=== PATIENT | male | born 1995 | race Caucasian/White ===

== ENCOUNTER 2017-10-16 14:03 | Inpatient (IN) | payer MEDICAID ==
[~2017-10-16] VITALS: Ht 170.2 cm; Wt 79.5 kg
[2017-10-16 14:27] LABS: BASOPHILS % (AUTO) 0.3 % (0-1); EOSINOPHILS # (AUTO) 0.7 X10'3 (0-0.9); EOSINOPHILS % (AUTO) 4.6 % (0-6); HEMOGLOBIN 8.9 g/dl (14.0-17.9); LYMPHOCYTES # (AUTO) 1.7 X10'3 (1.1-4.8); LYMPHOCYTES % (AUTO) 10.8 % (21-51); MEAN CORPUSCULAR HEMOGLOBIN 28.6 PG (27.0-31.0); MEAN CORPUSCULAR HGB CONC 32.8 % (33.0-36.5); MEAN PLATELET VOLUME 7.5 FL (7.4-10.4); MONOCYTES # (AUTO) 0.9 X10'3 (0-0.9); MONOCYTES % (AUTO) 5.7 % (2-12); NEUTROPHILS # (AUTO) 12.5 X10'3 (1.8-7.7); NEUTROPHILS % (AUTO) 78.6 % (42-75); PLATELET COUNT 330 X10'3 (140-440); RED CELL DISTRIBUTION WIDTH 18.6 % (11.5-14.5); WHITE BLOOD COUNT 15.9 X10'3 (4.5-11.0)
[2017-10-16 14:56] LABS: ALANINE AMINOTRANSFERASE 10 U/L (12-78); ALBUMIN 2.2 G/DL (3.4-5.0); ALBUMIN/GLOBULIN RATIO 0.6 (1.1-1.5); ALKALINE PHOSPHATASE 75 IU/L (46-116); ANION GAP 17 (8-16); ASPARTATE AMINO TRANSFERASE 21 U/L (10-37); BILIRUBIN,TOTAL 0.4 MG/DL (0.1-1.0); BLOOD UREA NITROGEN 59 MG/DL (7-18); BUN/CREATININE RATIO 4.8 (5.4-32.0); CALCIUM 8.3 MG/DL (8.5-10.1); CHLORIDE 105 MMOL/L (99-107); GLUCOSE 100 MG/DL (70-104); MAGNESIUM 2.2 MG/DL (1.5-2.4); PHOSPHORUS 7.6 MG/DL (2.3-4.5); POTASSIUM 4.1 MMOL/L (3.5-5.1); SODIUM 146 MMOL/L (135-145); TOTAL CARBON DIOXIDE 23.8 MMOL/L (24-32); TOTAL PROTEIN 6.2 G/DL (6.4-8.2); eGFR 5 ML/MIN
[2017-10-16 15:47] LABS: ANISOCYTOSIS 2+; MICROCYTOSIS FEW
[2017-10-16 15:48] LABS: ELLIPTOCYTES FEW; POLYCHROMASIA 1+
[2017-10-16] MEDS ORDERED: normal saline 1000ml 250 ML IV PRN (16:12)
[2017-10-16] MEDS ORDERED: heparin 1,000unit/ml 10ml vial 10 ML IV ONE (16:12)
[2017-10-16] MEDS ORDERED: epoetin 20,000 units/ml inj IV ONE (16:15)
[2017-10-16] MEDS ORDERED: heparin 1,000 units/ml 10ml inj HE ONE ×2 (16:20)
[2017-10-16] MEDS ORDERED: acetaminophen 325mg tablet PO PRN (16:25)
[2017-10-16] MEDS ORDERED: HYDROcodone/acetaminophen 10/325mg tab PO PRN (16:25)
[2017-10-16] MEDS ORDERED: ondansetron/PF 4mg/2ml inj IV PRN (16:25)
[2017-10-16] MEDS ORDERED: vancomycin/NS 1 GM ADD-VANTAGE 250 ML IV ONE (16:30)
[2017-10-16] MEDS ORDERED: ceftazidime 1000mg in D5W 50ml 50 ML IV SCH (16:30)
[2017-10-16 16:45] LABS: PLATELET ESTIMATE NORMAL
[2017-10-16 19:00] VITALS: BP 145/97
[2017-10-16 19:30] VITALS: BP 148/112
[2017-10-16 19:45] VITALS: BP 160/97
[2017-10-16] MEDS ORDERED: LORazepam 2 mg/ml vial IV ONE (19:45)
[2017-10-16 20:00] VITALS: BP 152/108
[2017-10-16] MEDS ORDERED: heparin, porcine 5000 units/ml vial SQ SCH (20:00)
[2017-10-16 20:15] VITALS: BP 158/110
[2017-10-16] MEDS: metoprolol tartrate 50mg tablet PO SCH (20:42)
[2017-10-16] MEDS: docusate sod 100mg capsule PO SCH (20:43)
[2017-10-16 22:56] VITALS: BP 147/94
[2017-10-17] VITALS (7 sets, daily range): BP systolic 108–146; BP diastolic 68–94
[2017-10-17] MEDS: guaiFENesin/DM oral syrup 5 ML CUP PO PRN ×2 (00:49→19:25)
[2017-10-17] MEDS: benzonatate 100mg capsule PO PRN ×2 (00:53→19:25)
[2017-10-17 03:43] LABS: BASOPHILS # (AUTO) 0.2 X10'3 (0-0.2); BASOPHILS % (AUTO) 0.7 % (0-1); EOSINOPHILS # (AUTO) 0.9 X10'3 (0-0.9); EOSINOPHILS % (AUTO) 3.5 % (0-6); HEMATOCRIT 32.2 % (42.0-52.0); HEMOGLOBIN 10.7 g/dl (14.0-17.9); LYMPHOCYTES # (AUTO) 2.6 X10'3 (1.1-4.8); LYMPHOCYTES % (AUTO) 10.6 % (21-51); MEAN CORPUSCULAR HEMOGLOBIN 28.9 PG (27.0-31.0); MEAN CORPUSCULAR HGB CONC 33.3 % (33.0-36.5); MEAN CORPUSCULAR VOLUME 86.6 FL (78-98); MEAN PLATELET VOLUME 8.3 FL (7.4-10.4); MONOCYTES # (AUTO) 1.4 X10'3 (0-0.9); MONOCYTES % (AUTO) 5.8 % (2-12); NEUTROPHILS # (AUTO) 19.4 X10'3 (1.8-7.7); NEUTROPHILS % (AUTO) 79.4 % (42-75); PLATELET COUNT 458 X10'3 (140-440); RED BLOOD COUNT 3.72 X10'6 (4.70-6.10); RED CELL DISTRIBUTION WIDTH 18.6 % (11.5-14.5); WHITE BLOOD COUNT 24.5 X10'3 (4.5-11.0)
[2017-10-17 03:56] LABS: ALANINE AMINOTRANSFERASE 17 U/L (12-78); ALBUMIN 2.6 G/DL (3.4-5.0); ALBUMIN/GLOBULIN RATIO 0.6 (1.1-1.5); ALKALINE PHOSPHATASE 89 IU/L (46-116); ANION GAP 11 (8-16); ASPARTATE AMINO TRANSFERASE 31 U/L (10-37); BILIRUBIN,TOTAL 0.7 MG/DL (0.1-1.0); BLOOD UREA NITROGEN 23 MG/DL (7-18); BUN/CREATININE RATIO 3.9 (5.4-32.0); CALCIUM 8.8 MG/DL (8.5-10.1); CHLORIDE 101 MMOL/L (99-107); GLUCOSE 128 MG/DL (70-104); MAGNESIUM 2.1 MG/DL (1.5-2.4); PHOSPHORUS 4.1 MG/DL (2.3-4.5); POTASSIUM 4.7 MMOL/L (3.5-5.1); SODIUM 140 MMOL/L (135-145); TOTAL PROTEIN 7.3 G/DL (6.4-8.2); eGFR 12 ML/MIN
[2017-10-17] MEDS ORDERED: AMLO10TA4 PO (07:47)
[2017-10-17] MEDS ORDERED: SIRO1TAB6 PO (07:51)
[2017-10-17] MEDS ORDERED: CALC0.258 PO (07:51)
[2017-10-17] MEDS ORDERED: TACR1CAP PO (07:51)
[2017-10-17] MEDS ORDERED: PRAV20TA4 PO (07:51)
[2017-10-17] MEDS ORDERED: SODI650T29 PO ×2 (07:52)
[2017-10-17] MEDS ORDERED: FERR-119 (07:53)
[2017-10-17] MEDS ORDERED: LABE100T PO (07:54)
[2017-10-17] MEDS: docusate sod 100mg capsule PO SCH ×2 (08:00→19:25)
[2017-10-17] MEDS: metoprolol tartrate 50mg tablet PO SCH ×2 (08:40→19:25)
[2017-10-17 13:20] LABS: CLARITY,URINE TURBID (Clear); COLOR,URINE RED (Yellow)
[2017-10-17 13:23] LABS: UA COLLECTION TYPE NON-SPECIFIED
[2017-10-17 13:29] LABS: WBC,URINE 50-100 /HPF (0-4)
[2017-10-17 13:30] LABS: BACTERIA,URINE 2+ /HPF (Neg); RBC,URINE TNTC /HPF (0-2); SQUAMOUS EPITHELIAL CELL,UR NONE SEEN /LPF (FEW)
[2017-10-17 13:31] LABS: WBC CLUMPS,URINE MODERATE /HPF (NEGATIVE)
[2017-10-17] MEDS ORDERED: MINO2.5T19 PO (15:15)
[2017-10-17] MEDS ORDERED: CLON0.2T PO (15:15)
[2017-10-17] MEDS ORDERED: FERR325T28 PO (15:15)
[2017-10-17] MEDS ORDERED: CALC667C5 PO (15:15)
[2017-10-17] MEDS ORDERED: DILT180C53 PO (15:15)
[2017-10-17] MEDS ORDERED: FURO40TA4 PO (15:15)
[2017-10-17] MEDS ORDERED: CHOL2000 PO (15:15)
[2017-10-17] MEDS: calcitriol 0.25mcg capsule PO SCH (16:49)
[2017-10-17] MEDS ORDERED: labetalol 100mg tablet PO SCH (20:00)
[2017-10-17] MEDS ORDERED: minoxidil 2.5mg tablet PO SCH (20:00)
[2017-10-17] MEDS: tacrolimus anhydrous 1mg capsule PO SCH (20:27)
[2017-10-17] MEDS: ferrous sulfate 325mg tablet PO SCH (20:27)
[2017-10-17] MEDS: atorvastatin 10mg tablet PO SCH (20:27)
[2017-10-17] MEDS: sodium bicarbonate 650mg tablet PO SCH (20:28)
[2017-10-18] MEDS: ceftazidime 1000mg in D5W 50ml 50 ML IV SCH (00:30)
[2017-10-18 05:09] LABS: BASOPHILS # (AUTO) 0.1 X10'3 (0-0.2); BASOPHILS % (AUTO) 0.7 % (0-1); EOSINOPHILS # (AUTO) 0.6 X10'3 (0-0.9); EOSINOPHILS % (AUTO) 5.4 % (0-6); HEMATOCRIT 26.8 % (42.0-52.0); HEMOGLOBIN 8.9 g/dl (14.0-17.9); LYMPHOCYTES # (AUTO) 1.5 X10'3 (1.1-4.8); LYMPHOCYTES % (AUTO) 13.2 % (21-51); MEAN CORPUSCULAR HEMOGLOBIN 28.8 PG (27.0-31.0); MEAN CORPUSCULAR HGB CONC 33.3 % (33.0-36.5); MEAN CORPUSCULAR VOLUME 86.7 FL (78-98); MEAN PLATELET VOLUME 7.8 FL (7.4-10.4); MONOCYTES # (AUTO) 0.9 X10'3 (0-0.9); MONOCYTES % (AUTO) 7.7 % (2-12); NEUTROPHILS # (AUTO) 8.4 X10'3 (1.8-7.7); PLATELET COUNT 325 X10'3 (140-440); RED BLOOD COUNT 3.09 X10'6 (4.70-6.10); RED CELL DISTRIBUTION WIDTH 17.7 % (11.5-14.5); WHITE BLOOD COUNT 11.5 X10'3 (4.5-11.0)
[2017-10-18 05:20] VITALS: BP 110/71
[2017-10-18 05:47] LABS: ALANINE AMINOTRANSFERASE 15 U/L (12-78); ALBUMIN 2.1 G/DL (3.4-5.0); ALBUMIN/GLOBULIN RATIO 0.5 (1.1-1.5); ALKALINE PHOSPHATASE 69 IU/L (46-116); ANION GAP 12 (8-16); ASPARTATE AMINO TRANSFERASE 22 U/L (10-37); BILIRUBIN,TOTAL 0.4 MG/DL (0.1-1.0); BLOOD UREA NITROGEN 46 MG/DL (7-18); BUN/CREATININE RATIO 5.1 (5.4-32.0); CALCIUM 8.2 MG/DL (8.5-10.1); CHLORIDE 99 MMOL/L (99-107); GLUCOSE 112 MG/DL (70-104); MAGNESIUM 1.9 MG/DL (1.5-2.4); PHOSPHORUS 7.4 MG/DL (2.3-4.5); POTASSIUM 4.5 MMOL/L (3.5-5.1); SODIUM 139 MMOL/L (135-145); TOTAL CARBON DIOXIDE 28.1 MMOL/L (24-32); eGFR 7 ML/MIN
[2017-10-18 06:30] VITALS: BP 102/60
[2017-10-18] MEDS ORDERED: heparin 1,000 units/ml 10ml inj HE ONE ×2 (08:00)
[2017-10-18] MEDS ORDERED: epoetin 20,000 units/ml inj IV ONE (08:00)
[2017-10-18] MEDS: sodium bicarbonate 650mg tablet PO SCH ×2 (08:00→21:00)
[2017-10-18] MEDS ORDERED: heparin 1,000unit/ml 10ml vial 10 ML IV ONE (08:00)
[2017-10-18] MEDS: metoprolol tartrate 50mg tablet PO SCH ×2 (08:00→19:35)
[2017-10-18] MEDS ORDERED: normal saline 1000ml 250 ML IV PRN (08:00)
[2017-10-18] MEDS: vitamin D (cholecalciferol) 1,000 unit tablet PO SCH (08:00)
[2017-10-18] MEDS: calcium acetate 667mg (PhosLO) capsule PO SCH ×3 (08:07→17:33)
[2017-10-18] MEDS: calcitriol 0.25mcg capsule PO SCH (08:09)
[2017-10-18] MEDS: ferrous sulfate 325mg tablet PO SCH ×2 (08:09→19:35)
[2017-10-18] MEDS: docusate sod 100mg capsule PO SCH ×2 (08:09→20:00)
[2017-10-18] MEDS: tacrolimus anhydrous 1mg capsule PO SCH ×2 (08:10→19:35)
[2017-10-18 11:00] VITALS: BP 123/78
[2017-10-18 15:00] VITALS: BP 112/66
[2017-10-18 19:00] VITALS: BP 120/69
[2017-10-18] MEDS: atorvastatin 10mg tablet PO SCH (19:35)
[2017-10-18 23:00] VITALS: BP 106/57
[2017-10-19] MEDS: ceftazidime 1000mg in D5W 50ml 50 ML IV SCH
[2017-10-19 03:00] VITALS: BP 133/70
[2017-10-19 05:30] VITALS: BP 133/84
[2017-10-19 06:20] LABS: BASOPHILS % (AUTO) 0.7 % (0-1); EOSINOPHILS # (AUTO) 0.4 X10'3 (0-0.9); EOSINOPHILS % (AUTO) 5.4 % (0-6); HEMATOCRIT 25.7 % (42.0-52.0); HEMOGLOBIN 8.6 g/dl (14.0-17.9); LYMPHOCYTES # (AUTO) 1.6 X10'3 (1.1-4.8); LYMPHOCYTES % (AUTO) 21.8 % (21-51); MEAN CORPUSCULAR HEMOGLOBIN 28.7 PG (27.0-31.0); MEAN CORPUSCULAR HGB CONC 33.5 % (33.0-36.5); MEAN CORPUSCULAR VOLUME 85.8 FL (78-98); MEAN PLATELET VOLUME 7.9 FL (7.4-10.4); MONOCYTES # (AUTO) 0.9 X10'3 (0-0.9); MONOCYTES % (AUTO) 11.9 % (2-12); NEUTROPHILS # (AUTO) 4.4 X10'3 (1.8-7.7); NEUTROPHILS % (AUTO) 60.2 % (42-75); PLATELET COUNT 272 X10'3 (140-440); RED BLOOD COUNT 2.99 X10'6 (4.70-6.10); RED CELL DISTRIBUTION WIDTH 17.8 % (11.5-14.5); WHITE BLOOD COUNT 7.4 X10'3 (4.5-11.0)
[2017-10-19 06:44] LABS: ALANINE AMINOTRANSFERASE 16 U/L (12-78); ALBUMIN 1.9 G/DL (3.4-5.0); ALBUMIN/GLOBULIN RATIO 0.5 (1.1-1.5); ALKALINE PHOSPHATASE 64 IU/L (46-116); ANION GAP 11 (8-16); ASPARTATE AMINO TRANSFERASE 24 U/L (10-37); BILIRUBIN,TOTAL 0.3 MG/DL (0.1-1.0); BLOOD UREA NITROGEN 28 MG/DL (7-18); BUN/CREATININE RATIO 4.9 (5.4-32.0); CALCIUM 8.4 MG/DL (8.5-10.1); CHLORIDE 102 MMOL/L (99-107); CREATININE 5.66 MG/DL (0.60-1.10); GLUCOSE 112 MG/DL (70-104); MAGNESIUM 1.9 MG/DL (1.5-2.4); PHOSPHORUS 5.6 MG/DL (2.3-4.5); POTASSIUM 4.2 MMOL/L (3.5-5.1); SODIUM 143 MMOL/L (135-145); TOTAL CARBON DIOXIDE 29.9 MMOL/L (24-32); TOTAL PROTEIN 5.7 G/DL (6.4-8.2); eGFR 13 ML/MIN
[2017-10-19] MEDS: ferrous sulfate 325mg tablet PO SCH (07:58)
[2017-10-19] MEDS: tacrolimus anhydrous 1mg capsule PO SCH (07:59)
[2017-10-19] MEDS: sodium bicarbonate 650mg tablet PO SCH (07:59)
[2017-10-19] MEDS: metoprolol tartrate 50mg tablet PO SCH (08:00)
[2017-10-19] MEDS: docusate sod 100mg capsule PO SCH (08:00)
[2017-10-19] MEDS: vitamin D (cholecalciferol) 1,000 unit tablet PO SCH (08:01)
[2017-10-19] MEDS: calcium acetate 667mg (PhosLO) capsule PO SCH ×2 (08:01→12:37)
[2017-10-19] MEDS: calcitriol 0.25mcg capsule PO SCH (08:01)
[2017-10-19 11:00] VITALS: BP 124/65
[2017-10-19 15:00] VITALS: BP 126/82
[2017-10-19] MEDS ORDERED: METO50TA16 PO (15:06)
[2017-10-19] MEDS ORDERED: FURO40TA4 PO (15:06)
[2017-10-19] MEDS ORDERED: lactobacillus rhamnosus 10,000 MMU CELLS/CAPSULE PO SCH (17:30)
== END 2017-10-19 17:05 | disposition home or self-care (01) | DRG 133 ==
LOC: ER 14:04 → ED HOLD 16:21 → PCU 3S 19:00 → CMPBEDREQ 19:34
PROVIDERS: ADMIT Internal Medicine Critical Care Medicine; ATTEND Internal Medicine Critical Care Medicine
PROC: 5A09357 Assistance with Respiratory Ventilation, Less than 24 Consecutive Hours, Continuous Positive Airway Pressure (ICD-10-PCS; 2017-10-16)
PROC: 5A1D70Z Performance of Urinary Filtration, Intermittent, Less than 6 Hours Per Day (ICD-10-PCS; 2017-10-16)
PROC: 5A1D70Z Performance of Urinary Filtration, Intermittent, Less than 6 Hours Per Day (ICD-10-PCS; principal; 2017-10-18)
DX: J96.01 Acute respiratory failure with hypoxia (principal); J18.9 Pneumonia, unspecified organism; T86.12 Kidney transplant failure; N18.6 End stage renal disease; G71.0 Muscular dystrophy; I12.0 Hypertensive chronic kidney disease with stage 5 chronic kidney disease or end stage renal disease; J81.1 Chronic pulmonary edema; Y83.0 Surgical operation with transplant of whole organ as the cause of abnormal reaction of the patient, or of later complication, without mention of misadventure at the time of the procedure; N13.729 Vesicoureteral-reflux with reflux nephropathy without hydroureter, unspecified; R31.0 Gross hematuria; Z79.899 Other long term (current) drug therapy; Z88.0 Allergy status to penicillin; Z99.2 Dependence on renal dialysis; Z91.040 Latex allergy status
CPT/HCPCS: 36415; 71045; 80053; 81001; 83605; 83735; 83880; 84100; 84145; 84484; 85025; 87040; 87070; 87088; 93005; 94660; 94760; 99291; G0257; J0713; J0885; J1644; J2060; J2405; J3370; J7030; J7507